=== PATIENT | male | born 1955 | race Caucasian/White ===

== ENCOUNTER → 2017-06-25 | Outpatient (CLI) | payer BC ==
[~2017-06-25] MED LIST: BIOF500T PO; ENOX40IN SQ; ESTER C PO; EZET10TA47 PO; FINA5TAB PO; LISI-725 PO; MULT-506 PO; OXYC-292 PO; OXYC-643 PO; PRAV20TA PO; TAMS0.4C38 PO; WARF6TAB PO
--- NOTE | 2017-06-25 12:38 | DIAGNOSTIC IMAGING REPORT ---
BONE SCAN 3 PHASE LIMITED CLINICAL HISTORY: RT KNEE PAIN/SWELLING R/O INFECT. VS TKR LOOSENING pain TECHNIQUE: 3 phase study following administration of 25.7 mCi technetium 99m MDP. COMPARISON STUDY: None FINDINGS: Patient is status post total right knee replacement. No additional vascular flow images show hyperemia to the general region of the right knee. This is seen in the anterior and posterior views. Delayed static images as well as blood pool images demonstrate increased activity at the osseous interface with the metallic prosthetic. No significant abnormality of the left knee. IMPRESSION: 1. Hyperemia and increased delayed activity at the interface of the patient's total right knee prosthetic and underlying bone. 2. Given the hyperemia, joint infection must be considered. 3. This may also represent loosening, although the increased vascular flow remains concerning for an infectious/inflammatory etiology The above report was generated using voice recognition software. It may contain grammatical, syntax or spelling errors. Electronically signed by: Harry Terrell M.D. 06/25/2017 12:37 PM Dictated Date/Time: 06/25/2017 12:33 PM
== END | disposition home or self-care (01) ==
LOC: C.NUCL 08:40
PROVIDERS: ATTEND Orthopaedic Surgery
DX: T84.092A Other mechanical complication of internal right knee prosthesis, initial encounter (principal); Y83.1 Surgical operation with implant of artificial internal device as the cause of abnormal reaction of the patient, or of later complication, without mention of misadventure at the time of the procedure; Y79.2 Prosthetic and other implants, materials and accessory orthopedic devices associated with adverse incidents

== ENCOUNTER 2017-06-29 09:30 | Inpatient (IN) | payer BC ==
--- NOTE | 2017-06-28 13:57 | HISTORY & PHYSICAL EXAMINATION ---
DATE OF ADMISSION: 06/29/2017 HISTORY OF PRESENT ILLNESS: The patient presents as a 62-year-old white male being seen and evaluated with aseptic loosening of his right femoral component. He had his knee replacement done in 2011. Postoperatively, he was doing remarkably well, had no complaints of pain and over the last 6 months to 9 months began having swelling and pain of his knee. Preoperative workup included sed rate, CBC, and C-reactive protein, which were all within normal limits as well as Synovasure aspiration, no growth, negative for any type of infection, negative for alpha defensins. His bone scan is consistent with that of an increased uptake involving the femoral component and tibial component is otherwise appears to be unaffected. He has failed attempts at conservative management, activity modification and presents for revision total knee arthroplasty versus revision femur component. PAST MEDICAL HISTORY: Significant for hypertension and hypercholesterolemia. He denies diabetes or thyroid disease. FAMILY HISTORY: Otherwise, unremarkable and noncontributory. SOCIAL HISTORY: The patient denies history of alcohol, smoking or recreational drug use. ALLERGIES: None. MEDICATIONS: Include Pravachol 40 mg p.o. daily and Lyrica 50 mg p.o. daily. REVIEW OF SYSTEMS: Otherwise, as unremarkable. See history of present illness for pertinent positives. PHYSICAL EXAMINATION: GENERAL: Reveals a very pleasant 62-year-old white male with complaints of ongoing pain attributed to his right knee with swelling with aseptic loosening of his distal component. He presents for revision of femoral component, possible total knee revision pending findings at time of surgery as well as intraoperative frozen sections. HEENT: Otherwise unremarkable, atraumatic, normocephalic. HEART: Regular at 72 beats per minute. No murmurs are noted. LUNGS: Clear. No rales, rhonchi, or wheezes noted. ABDOMEN: Soft, nontender, nondistended. Bowel sounds are present in all 4 quadrants. RECTAL: No rectal examination was performed. MUSCULOSKELETAL: Consistent with that of a painful right total knee arthroplasty. PLAN: For removal of aseptic loosening femoral component, intraoperative gram stain synovectomy and revision total knee arthroplasty pending findings at time of surgery. Postoperative pain management, DVT prophylaxis, antibiotics as noted above.
[2017-06-28 16:02] VITALS: Ht 177.8 cm; Wt 84.1 kg
[~2017-06-29] VITALS: Ht 177.8 cm; Wt 84.1 kg
[2017-06-29] VITALS (7 sets, daily range): BP systolic 117–153; BP diastolic 55–94; PULSE 59–76; TEMP 36.3–36.9; O2SAT 94–97
--- NOTE | 2017-06-29 09:22 | History & Physical Bridge Note ---
H&P Re-Evaluation Bridge Note: I have examined the patient, reviewed the History & Physical and in the interval since the performance of the History & Physical I have noted the following changes of clinical significance: No changes noted
[~2017-06-29 09:30] MED LIST changes: +ACETAMINOPHEN 500 MG TAB PO SCH; +ATROPINE SULFATE 0.1 MG/ML 5ML SYR IV PRN; +BUPIVACAINE 0.5 % 5 MG/1 ML PF 10ML VIAL ONE; +CEFAZOLIN 1000MG IV PUSH 5 ML IV SCH; -ENOX40IN SQ; -ESTER C PO; -EZET10TA47 PO; +EpHEDrine SULFATE INJ 50 MG/ML AMP IV PRN; +HYDROmorphone INJ 2 MG/ML SYR/VIAL IV PRN; +LACTATED RINGER'S 1000ML 1,000 ML IV SCH; +LACTATED RINGER'S 1000ML 500 ML IV ONE; +ONDANSETRON INJ 2 MG/ML 2 ML VIAL IV PRN; -OXYC-292 PO; -OXYC-643 PO; +PHENYLEPHRINE 100MCG/ML 5ML SYR IV PRN; +ROPIVACAINE 0.5% 5 MG/ML 30 ML VIAL ONE
[2017-06-29] MEDS ORDERED: CEFAZOLIN 2000MG IV PUSH 10 ML IV SCH (10:01)
[2017-06-29] MEDS ORDERED: MIDAZOLAM HCL 1 MG/ML 2ML VIAL ONE (10:12)
[2017-06-29] MEDS ORDERED: FENTANYL CITRATE INJ 50 MCG/1 ML 2 ML VIAL ONE (10:12)
[2017-06-29 10:25] LABS: INR 1.1 (0.9-1.1); PARTIAL THROMBOPLASTIN RATIO 1.1
[2017-06-29] MEDS ORDERED: FAMOTIDINE 20 MG TAB PO SCH (10:30)
[2017-06-29] MEDS ORDERED: METOCLOPRAMIDE HCL 10 MG TAB PO SCH (10:30)
[2017-06-29] MEDS ORDERED: ACETAMINOPHEN 500 MG TAB PO SCH (10:30)
[2017-06-29] MEDS ORDERED: CeleBREX 200 MG CAP PO SCH (10:30)
[2017-06-29] MEDS ORDERED: GABAPENTIN 300 MG CAP PO SCH (10:30)
[2017-06-29] MEDS ORDERED: DEXAMETHASONE 4 MG TAB PO SCH (10:30)
[2017-06-29] MEDS ORDERED: POVIDONE-IODINE OP SOLN 30 ML BTL ONE (11:06)
[2017-06-29] MEDS ORDERED: BACITRACIN 50000 UNIT VIAL ONE (11:06)
[2017-06-29] MEDS ORDERED: ROPIVACAINE 5MG/ML 30 ML 150 MG, BUPIVACAINE 0.5% MPF INJ 30 ML, EpINEphrine HCL INJ 0.... INFIL SCH ×8 (11:45)
--- NOTE | 2017-06-29 13:45 | [facility] Operative Report ---
Operative Report Operative Date Jun 29, 2017. Pre-Operative Diagnosis Right Total Knee, Aseptic Loosening Right Femoral Component Post-Operative Diagnosis Right Total Knee, Aseptic Loosening Right Femoral Component Procedure(s) Performed Right Total Knee Revision of Femoral Component and Poly Exchange utilizing size femur 66 Moler offset 15 mm stem by 160 mm set at 01/15/2015 millimeter constrained Ora Surgeon [address]. Henderson Publications Designer Surgeon(s) MARCI Torrez Estimated Blood Loss 10 ml Findings Aseptic loosening femoral component right total knee arthroplasty interoperative frozen sections no acute inflammation no white cells per high- power field interoperative stat Gram stain few white cells no organisms Specimens Culture--Right Knee Joint Fluid--for STAT gram stain, routine culture and sensitivity, aerobes and anaerobes--sent to lab at 1212 Frozen Section #1--Right Femur Implant Interface--wbcs per high powered field--sent to pathology at 1247 Complication(s) None Disposition Recovery Room / PACU Indications Patient presents with long-standing pain and swelling about his right knee said previous total knee arthroplasty 4 years prior had a synovial sure workup which was negative for alpha defense and is negative for cultures no growth center synovasure femoral component was loosened on the medial side and was removed utilizing laterally was negative preoperative sedimentation rate and C-reactive protein were all within normal limits intraoperative Gram stain was negative intraoperative frozen section acute inflammation noted Description of Procedure After proper prepping draping the right lower extremity incision was made over the region of the previous extensor midline incision and medial parapatellar incision made the patella subluxed lateralward. Femur were evaluated and there is loosening of the lateral compartment component femur medial side was released that utilizing the Ultra-Drive the femoral component been removed sensitives tissue at the implant bone interface was socially sent for frozen section intraoperative Gram stain were sent for stat evaluation which were reported as no organisms and few white cells informational frozen section no white cells per high power field informed thorough irrigation debridement lavage wound after removal of femoral component and the femur was sized to size 6 with a 6 mm offset 15 mm stem 160 7630 Ora 15 mm with a constrained poly- was placed socially the wound was irrigated with copious amounts of sterile saline solution the final component was [place] was prepared via femoral component was also cemented of the poly-was placed stability in both extension mid flexion and flexion was all excellent full range of motion 0 150 of flexion was noted patient WELL socially wound was irrigated with sterile saline solution medial parapatellar incision was closed with #2 FiberWire and #5 FiberWire as well as #1 Vicryl subcutaneous sutures of 2-0 Vicryl scheduled skin clips sterile compressive dressing was placed patient states recovery in stable condition. Report dictated by Santiago Aguirreel Maegan please note Harry COVARRUBIAS was necessary for prepping draping retraction closure defect is subcutaneous and skin was necessary for the case I attest to the content of the Intraoperative Record and any orders documented therein. Any exceptions are noted below.
[2017-06-29] MEDS ORDERED: PROPOFOL IV EMULSION 10 MG/ML 20 ML VIAL IV ONE (13:51)
[2017-06-29] MEDS ORDERED: GLYCOPYRROLATE INJ 0.2 MG/ML VIAL ONE (13:51)
[2017-06-29] MEDS ORDERED: MoRPHine SULFATE 2 MG/ML CARP IV PRN ×2 (14:30→15:15)
[2017-06-29] MEDS ORDERED: ALUMINUM/MAGNESIUM/SIMETH (MAALOX MAX) 30 ML UDC PO PRN (14:30)
[2017-06-29] MEDS ORDERED: KETOROLAC TROMETHAMINE 30 MG/ML VIAL IV. PRN (14:30)
[2017-06-29] MEDS ORDERED: SOD PHOSPHATE/SOD BIPHOSPHATE ENEMA 132 ML BTL PR PRN (14:30)
[2017-06-29] MEDS ORDERED: BISACODYL 10 MG SUPP PR PRN (14:30)
[2017-06-29] MEDS ORDERED: ONDANSETRON INJ 2 MG/ML 2 ML VIAL IV PRN (14:30)
[2017-06-29] MEDS ORDERED: TRAMADOL HCL 50 MG TAB PO PRN (14:30)
[2017-06-29] MEDS ORDERED: MAGNESIUM HYDROXIDE SUSP 30 ML UDC PO PRN (14:30)
--- NOTE | 2017-06-29 14:38 | DIAGNOSTIC IMAGING REPORT ---
TWO VIEWS RIGHT KNEE CLINICAL HISTORY: Postoperative examination. FINDINGS: AP and crosstable lateral portable views of the right knee are obtained. A right knee arthroplasty is in near anatomic alignment. A long femoral stem is observed. There has been undersurface remodeling of the patella. No acute fracture is seen. There are expected postoperative changes around the knee including a surgical drain, soft tissue edema, and subcutaneous gas. IMPRESSION: Expected postoperative changes status post right knee arthroplasty. No acute fracture is seen. Electronically signed by: Rick Gustafson M.D. 06/29/2017 2:37 PM Dictated Date/Time: 06/29/2017 2:37 PM
[2017-06-29] MEDS ORDERED: MoRPHine SULFATE 4 MG/ML 1 ML CARP\\VIAL IV PRN (15:15)
[2017-06-29] MEDS ORDERED: MoRPHine SULFATE 10 MG/ML CARP/VIAL IV PRN (15:15)
--- NOTE | 2017-06-29 15:51 | Anesthesiology Progress Note ---
Anesthesia Post Op Note Date & Time Jun 29, 2017 at 15:50 Vital Signs Pain Intensity: 0.0 Vital Signs Past 12 Hours Date Time Temp Pulse Resp B/P (MAP) Pulse Ox O2 Delivery O2 Flow Rate FiO2 06/29/17 15:30 36.9 76 18 129/83 (98) 97 Nasal Cannula 2.0 06/29/17 15:30 Nasal Cannula 2.0 06/29/17 15:15 64 15 127/85 95 Nasal Cannula 2 06/29/17 15:00 64 18 125/82 95 Nasal Cannula 2 06/29/17 14:45 37.0 80 21 130/86 95 Nasal Cannula 2 06/29/17 14:35 81 17 112/77 94 Nasal Cannula 2 06/29/17 14:25 73 16 102/66 94 Oxymask 10 06/29/17 14:16 37.3 72 18 95/60 95 Oxymask 10 06/29/17 10:17 36.4 67 18 148/94 96 Room Air Notes Mental Status: alert / awake / arousable, participated in evaluation Pt Amnestic to Procedure: Yes Nausea / Vomiting: adequately controlled Pain: adequately controlled Airway Patency, RR, SpO2: stable & adequate BP & HR: stable & adequate Hydration State: stable & adequate Anesthetic Complications: no major complications apparent
[2017-06-29 17:23] LABS: CREATININE 1.09 mg/dl (0.60-1.40)
[2017-06-29] MEDS: D5W AND 1/2NSS + 20MEQ KCL 1,000 ML IV SCH (17:44)
[2017-06-29] MEDS: ACETAMINOPHEN 500 MG TAB PO SCH (18:07)
[2017-06-29] MEDS: WARFARIN PO SCH ×2 (18:07)
[2017-06-29] MEDS: CEFAZOLIN IV 2,000 MG in SYRINGE 0 ML IV SCH (20:02)
[2017-06-29] MEDS ORDERED: ASPIRIN 81 MG ECTAB PO SCH (21:00)
[2017-06-29] MEDS: TAMSULOSIN HCL 0.4 MG CAP PO SCH (21:11)
[2017-06-29] MEDS: DOCUSATE SODIUM 100 MG CAP PO SCH (21:11)
[2017-06-29] MEDS: SENNA 8.6 MG TAB PO SCH (21:11)
[2017-06-29] MEDS: ZOLPIDEM TARTRATE 5 MG TAB PO PRN (21:53)
[2017-06-30] MEDS: D5W AND 1/2NSS + 20MEQ KCL 1,000 ML IV SCH ×2 (02:14→12:02)
[2017-06-30] MEDS: ACETAMINOPHEN 500 MG TAB PO SCH ×3 (02:14→17:51)
[2017-06-30] MEDS: CEFAZOLIN IV 2,000 MG in SYRINGE 0 ML IV SCH (03:44)
[2017-06-30 03:55] VITALS: BP 126/75; PULSE 63; TEMP 36.6; O2SAT 97
[2017-06-30 06:58] LABS: HEMATOCRIT 38.2 % (42-52); MEAN CELL VOLUME 85.8 fL (80-100); MEAN CORPUSCULAR HEMOGLOBIN 28.1 pg (25-34); MEAN CORPUSCULAR HGB CONC 32.7 g/dl (32-36); MEAN PLATELET VOLUME 10.1 fL (7.4-10.4); PLATELET COUNT 157 K/uL (130-400); RED BLOOD COUNT 4.45 M/uL (4.7-6.1); WHITE BLOOD COUNT 13.18 K/uL (4.8-10.8)
[2017-06-30 07:01] LABS: INR 1.1 (0.9-1.1); PROTHROMBIN TIME (PATIENT) 11.5 SECONDS (9.0-12.0)
--- NOTE | 2017-06-30 07:02 | Orthopedic Progress Note ---
Orthopedic Progress Note Date of Service Jun 30, 2017. Subjective Post OP Day: 1 Reports: feeling well, pain controlled w PO medications, Denies: complaints, chest pain, SOB, nausea / vomiting, light headedness, calf pain Objective calves soft nontender, N/V intact, capillary refill less than 2 sec., dressing C /D/I, A&O x3, toes mobile, hemovac drainage (200cc/8 hours) Date Time Temp Pulse Resp B/P (MAP) Pulse Ox O2 Delivery O2 Flow Rate FiO2 06/30/17 03:55 36.6 63 16 126/75 (92) 97 Room Air 06/29/17 23:25 36.5 61 16 117/55 (75) 94 Room Air 06/29/17 23:20 Room Air 06/29/17 18:24 64 18 144/81 (102) 97 Nasal Cannula 2.0 06/29/17 17:36 36.4 59 16 151/93 (112) 96 Nasal Cannula 2.0 06/29/17 16:36 36.3 64 16 149/89 (109) 97 Nasal Cannula 2.0 06/29/17 16:07 36.5 68 16 153/94 (113) 96 Nasal Cannula 2.0 06/29/17 15:30 36.9 76 18 129/83 (98) 97 Nasal Cannula 2.0 06/29/17 15:30 97 Nasal Cannula 2.0 06/29/17 15:30 Nasal Cannula 2.0 06/29/17 15:15 64 15 127/85 95 Nasal Cannula 2 06/29/17 15:00 64 18 125/82 95 Nasal Cannula 2 06/29/17 14:45 37.0 80 21 130/86 95 Nasal Cannula 2 06/29/17 14:35 81 17 112/77 94 Nasal Cannula 2 06/29/17 14:25 73 16 102/66 94 Oxymask 10 06/29/17 14:16 37.3 72 18 95/60 95 Oxymask 10 06/29/17 10:17 36.4 67 18 148/94 96 Room Air Laboratory Results 24 Hours: Test 06/29/17 09:56 06/30/17 06:14 Prothromb Time International Ratio 1.1 Prothrombin Time 12.0 SECONDS Assessment & Plan Assessment: POD #1 s/p revision femoral component and poly upsize right TKA -pt/ot -dvt proph with meron/scd/coumadin -plan for d/c home with OPPT, will recheck after PT today for poss d/c today Discharge Planning Discharge Planning: home with oppt DVT Prophylaxis: TEDs, SCDs, Coumadin Therapy: Physical Therapy
[2017-06-30 07:24] LABS: BUN/CREATININE RATIO 18.9 (10-20); CALCIUM 7.9 mg/dl (8.5-10.1); CREATININE 0.91 mg/dl (0.60-1.40); POTASSIUM 4.3 mmol/L (3.5-5.1)
--- NOTE | 2017-06-30 07:26 | Discharge Instructions ---
Discharge Instructions Date of Service Jun 30, 2017. Admission Reason for Admission: Right Knee Mechanical Loosening Of Other Internal Discharge Discharge Diagnosis / Problem: revision femoral component and poly s/p Right TKA Discharge Goals Goal(s): Decrease discomfort, Improve function, Increase independence Activity Recommendations Activity Limitations: as noted below Weightbearing Status: Right weightbearing (as tolerated) . Instructions / Follow-Up Instructions / Follow-Up ACTIVITY RECOMMENDATIONS: SELF CARE INSTRUCTIONS AFTER TOTAL KNEE REPLACEMENT A. You may need to continue a physical therapy program after discharge from the hospital. There are several options available to you. Your doctor will assist you in selecting the best one for you. 1. An out-patient facility 2 to 3 times a week for therapy or home therapy. 2. Continue working on all exercises taught to you in the hospital. Your goals should be to increase bending of your knee to 90 degrees and beyond and to fully straighten your knee. B. You may progress at your own pace from walking with a walker or crutches to a cane; then to no assistive devices. C. Make walking a part of your daily routine. Be up as much as comfortable with rest periods throughout the day. Rest with leg elevation is very important. Use the ice wrap frequently for the first 3-4 weeks. D. There are no restrictions on activities. You may ride in a car, shop, participate in hospice rn and all social activities. E. Wear the long elastic stockings (MICHELE hose) 20 hours a day for 2 weeks after surgery. They can be removed several times a day for laundering and for a bath. F. You may shower, no tub baths until cleared by your doctor. SPECIAL CARE INSTRUCTIONS: VERY IMPORTANT TO READ AND REVIEW A. There are a few signs you need to watch for after you are home. Call [facility] if you notice any of the followin. Increased severe knee pain. Some pain is expected especially when you exercise. 2. Increased swelling in your leg or knee; pain or swelling of the calf muscle in either lower leg. 3. Any fluid drainage from the incision. 4. Shortness of breath or chest pain. B. Please call [facility] at if you have any concerns or questions about your operation or recovery. The doctor or his nurse will return your call promptly. C. You must take antibiotics before dental work, bladder, bowel or other surgery. Your doctor will provide you with a permanent care to carry describing this precaution. IMPORTANT: * REMEMBER TO CONTINUE YOUR HOME DOSE OF COUMADIN AND HAVE YOUR PT/INR CHECKED TWICE/WEEK FOR THE FIRST 2 WEEKS AFTER SURGERY. * HIGH RISK PATIENTS MAY BE PRESCRIBED A STRONGER BLOOD THINNER. THIS WILL BE PROVIDED AT DISCHARGE. * CALL IF INCREASED PAIN, REDNESS, DRAINAGE OR FEVER GREATER THAT 101. * WEAR MICHELE HOSE 20 HOURS PER DAY FOR 2 WEEKS. * DERMABOND Prineo- This is a mesh tape dressing that is covered with glue. It should remain in place until the incision is properly healed, usually 10-14 days. This dressing is designed to naturally slough off. You may trim the excess mesh tape as it peels off. Incision may be briefly wet in a shower. Dry immediately by blotting with a clean, dry towel. Do not bath or swim until instructed by your doctor. Do not scratch, rub, or pick at the dressing. Do not apply any topical ointments or lotions until dressing is completely removed and/or instructed by your doctor. There may be a small piece of suture material at one end of your incision. Do not pull or trim this. If it is bothersome or catching on clothing, you may cover it with a band-aid. FOLLOW UP VISIT: If appointment is not already scheduled: Please call [facility] to make a follow-up appointment for 2 weeks after your surgery at . Current Hospital Diet Patient's current hospital diet: Regular Diet Discharge Diet Recommended Diet: Regular Diet Procedures Procedures Performed: Right Total Knee Revision of Femoral Component and Poly Exchange utilizing size femur 66 Moler offset 15 mm stem by 160 mm set at 01/15/2015 millimeter constrained Ora Pending Studies Studies pending at discharge: no Medical Emergencies . Who to Call and When: Medical Emergencies: If at any time you feel your situation is an emergency, please call 911 immediately. . Non-Emergent Contact Non-Emergency issues call your: Primary Care Provider, Surgeon . "Provider Documentation" section prepared by Harry Matamoros. . VTE Core Measure Inpt VTE Proph given/why not?: Warfarin (Coumadin) (RESUME HOME DOSE), Rusty Joseph, SCD's [place] Drug Monitoring Program Search Results: patient reviewed within database, no issues identified
[2017-06-30 07:51] VITALS: BP 122/78; PULSE 57; TEMP 36.9; O2SAT 95
[2017-06-30 07:55] VITALS: O2SAT 95
[2017-06-30] MEDS: PRAVASTATIN SOD 40 MG TAB PO SCH (08:31)
[2017-06-30] MEDS: DOCUSATE SODIUM 100 MG CAP PO SCH ×2 (08:31→21:00)
[2017-06-30] MEDS: FINASTERIDE 5 MG TAB PO SCH (08:31)
[2017-06-30] MEDS: MULTIVITAMIN TAB PO SCH (08:32)
[2017-06-30] MEDS: PANTOprazole SOD 40 MG TAB PO SCH (08:32)
[2017-06-30] MEDS: LISINOPRIL 20 MG TAB PO SCH (08:32)
[2017-06-30] MEDS ORDERED: WARFARIN SOD 6 MG TAB PO SCH (09:00)
[2017-06-30 11:28] VITALS: BP 130/60; PULSE 63; TEMP 36.7; O2SAT 95
--- NOTE | 2017-06-30 13:28 | Anesthesiology Progress Note ---
Anesthesia Post Op Note Date & Time Jun 30, 2017 at 13:27 Vital Signs Pain Intensity: 0.0 Vital Signs Past 12 Hours Date Time Temp Pulse Resp B/P (MAP) Pulse Ox O2 Delivery O2 Flow Rate FiO2 06/30/17 11:28 36.7 63 18 130/60 (83) 95 Room Air 06/30/17 07:55 95 Room Air 06/30/17 07:51 36.9 57 22 122/78 (93) 95 Room Air 06/30/17 07:25 Room Air 06/30/17 03:55 36.6 63 16 126/75 (92) 97 Room Air Notes Mental Status: alert / awake / arousable, participated in evaluation Pt Amnestic to Procedure: Yes Nausea / Vomiting: adequately controlled Pain: adequately controlled Airway Patency, RR, SpO2: stable & adequate BP & HR: stable & adequate Hydration State: stable & adequate Neuraxial Anesthesia: sensory block resolved Anesthetic Complications: no major complications apparent
[2017-06-30 14:55] VITALS: BP 136/75; PULSE 67; TEMP 36.6; O2SAT 92
[2017-06-30] MEDS: WARFARIN PO SCH ×2 (16:13)
[2017-06-30] MEDS: SENNA 8.6 MG TAB PO SCH (21:00)
[2017-06-30] MEDS: TAMSULOSIN HCL 0.4 MG CAP PO SCH (21:39)
[2017-06-30] MEDS: ZOLPIDEM TARTRATE 5 MG TAB PO PRN (21:39)
[2017-06-30] MEDS: CeleBREX 200 MG CAP PO SCH (21:39)
[2017-07-01 00:06] VITALS: BP 122/76; PULSE 64; TEMP 36.9; O2SAT 96
[2017-07-01] MEDS: ACETAMINOPHEN 500 MG TAB PO SCH ×2 (01:39→09:56)
[2017-07-01 06:26] LABS: INR 1.4 (0.9-1.1); PROTHROMBIN TIME (PATIENT) 14.1 SECONDS (9.0-12.0)
[2017-07-01 07:08] VITALS: BP 152/83; PULSE 64; TEMP 36.5; O2SAT 96
--- NOTE | 2017-07-01 08:02 | Orthopedic Progress Note ---
Orthopedic Progress Note Date of Service Jul 01, 2017. Subjective Post OP Day: 2 Reports: feeling well, Denies: complaints Objective calves soft nontender, N/V intact, incision C/D/I, A&O x3, toes mobile Date Time Temp Pulse Resp B/P (MAP) Pulse Ox O2 Delivery O2 Flow Rate FiO2 07/01/17 07:08 36.5 64 18 152/83 (106) 96 Room Air 07/01/17 07:05 Room Air 07/01/17 00:06 36.9 64 14 122/76 (91) 96 Room Air 06/30/17 23:55 Room Air 06/30/17 15:30 Room Air 06/30/17 14:55 36.6 67 19 136/75 (95) 92 Room Air 06/30/17 11:28 36.7 63 18 130/60 (83) 95 Room Air Laboratory Results 24 Hours: Test 07/01/17 05:34 Prothromb Time International Ratio 1.4 Prothrombin Time 14.1 SECONDS Assessment & Plan Assessment: POD #2 s/p revision femoral component and poly upsize right TKA -pt/ot -dvt proph with meron/scd/coumadin -plan for d/c home with OPPT today Discharge Planning Discharge Planning: home with oppt DVT Prophylaxis: TEDs, SCDs, Coumadin Therapy: Physical Therapy
[2017-07-01] MEDS ORDERED: SENN-61 PO (08:08)
[2017-07-01] MEDS ORDERED: RXC5 PO (08:08)
[2017-07-01] MEDS ORDERED: CLB200 PO (08:08)
[2017-07-01] MEDS ORDERED: ACET-24 PO (08:08)
[2017-07-01] MEDS: LISINOPRIL 20 MG TAB PO SCH (08:21)
[2017-07-01] MEDS: FINASTERIDE 5 MG TAB PO SCH (08:21)
[2017-07-01] MEDS: MULTIVITAMIN TAB PO SCH (08:21)
[2017-07-01] MEDS: PRAVASTATIN SOD 40 MG TAB PO SCH (08:21)
[2017-07-01] MEDS: DOCUSATE SODIUM 100 MG CAP PO SCH (08:21)
[2017-07-01] MEDS: PANTOprazole SOD 40 MG TAB PO SCH (08:21)
[2017-07-01] MEDS: OXYCODONE HCL IR 5 MG TAB (IMMEDIATE RELEASE) PO PRN ×2 (08:26→13:08)
[2017-07-01 09:12] VITALS: BP 152/83; PULSE 64; TEMP 36.5; O2SAT 96
[2017-07-01] MEDS: CeleBREX 200 MG CAP PO SCH (09:29)
--- NOTE | 2017-07-01 18:25 | Discharge Summary ---
Orthopedic Discharge Summary Admission Date/Reason Jun 29, 2017 at 10:30 Right Knee Mechanical Loosening Of Other Internal. Discharge Date/Disposition Jun 30, 2017 Home Diagnosis Principal Diagnosis: aseptic loosening right total knee arthroplasty Procedure(s) Performed Right Total Knee Revision of Femoral Component and Poly Exchange utilizing size femur and constrained Ora Consultations NONE Medication Reconciliation New Medications: Acetaminophen (Sb Non-Aspirin Extra Stre) 500 Mg Tab 1000 MG PO Q8H for 21 Days, #126 TAB Celecoxib (Celebrex) 200 Mg Cap 200 MG PO BID, #60 CAP Oxycodone HCl (Oxycodone HCl) 5 Mg Tab 5-10 MG PO Q4H PRN for Pain, #60 TAB Senna (Senokot) 8.6 Mg Tab 17.2 MG PO HS, #30 TAB Continued Medications: Bioflavonoid Products (Prisca-C) 1 Tab Tab 1 TAB PO QAM Finasteride (Proscar) 5 Mg Tab 5 MG PO QAM, TAB Lisinopril (Zestril) 20 Mg Tab 20 MG PO QAM, TAB Multivitamin (Multivitamin) Tab 1 TAB PO QAM, TAB Pravastatin (Pravachol ) 20 Mg Tab 40 MG PO QAM, TAB Tamsulosin Hcl (Flomax) 0.4 Mg Cap 0.4 MG PO HS, CAP Warfarin Sodium (Coumadin) 6 Mg Tab 6.5 MG PO DAILY, TAB PER PT WAS TOLD TO STOP TAKING 06/24/17 Admission Physical Exam As per Admitting History & Physical. Hospital Course Patient was a same day admission after undergoing a successful revision TKA. he tolerated the procedure well. Post-operatively, his activity was progressed and well tolerated. Please refer to daily progress notes and PT notes for complete details. After exam on 07/01/17, patient felt to be stable for discharge home with OPPT. Patient will f/u in the office in 2 weeks for further evaluation including x-rays and incision check, sooner if having any issues or concerns. Below are pertinent labs/studies during their hospital stay: Last Vital Signs Documentation Date Time Temp Pulse Resp B/P (MAP) Pulse Ox O2 Delivery O2 Flow Rate FiO2 07/01/17 09:12 36.5 64 18 96 Room Air 07/01/17 07:08 152/83 (106) 06/29/17 18:24 2.0 Last Resulted CBC 06/30/17 06:14 Last Resulted BMP 06/30/17 06:14 Discharge Instructions ACTIVITY RECOMMENDATIONS: SELF CARE INSTRUCTIONS AFTER TOTAL KNEE REPLACEMENT A. You may need to continue a physical therapy program after discharge from the hospital. There are several options available to you. Your doctor will assist you in selecting the best one for you. 1. An out-patient facility 2 to 3 times a week for therapy or home therapy. 2. Continue working on all exercises taught to you in the hospital. Your goals should be to increase bending of your knee to 90 degrees and beyond and to fully straighten your knee. B. You may progress at your own pace from walking with a walker or crutches to a cane; then to no assistive devices. C. Make walking a part of your daily routine. Be up as much as comfortable with rest periods throughout the day. Rest with leg elevation is very important. Use the ice wrap frequently for the first 3-4 weeks. D. There are no restrictions on activities. You may ride in a car, shop, participate in dampproofer and all social activities. E. Wear the long elastic stockings (MICHELE hose) 20 hours a day for 2 weeks after surgery. They can be removed several times a day for laundering and for a bath. F. You may shower, no tub baths until cleared by your doctor. SPECIAL CARE INSTRUCTIONS: VERY IMPORTANT TO READ AND REVIEW A. There are a few signs you need to watch for after you are home. Call [facility] if you notice any of the followin. Increased severe knee pain. Some pain is expected especially when you exercise. 2. Increased swelling in your leg or knee; pain or swelling of the calf muscle in either lower leg. 3. Any fluid drainage from the incision. 4. Shortness of breath or chest pain. B. Please call [facility] at if you have any concerns or questions about your operation or recovery. The doctor or his nurse will return your call promptly. C. You must take antibiotics before dental work, bladder, bowel or other surgery. Your doctor will provide you with a permanent care to carry describing this precaution. IMPORTANT: * REMEMBER TO TAKE ASPIRIN, 81 MG, TWICE DAILY FOR 4 WEEKS UNLESS OTHERWISE DIRECTED. THIS IS YOUR BLOOD THINNER. * HIGH RISK PATIENTS MAY BE PRESCRIBED A STRONGER BLOOD THINNER. THIS WILL BE PROVIDED AT DISCHARGE. * CALL IF INCREASED PAIN, REDNESS, DRAINAGE OR FEVER GREATER THAT 101. * WEAR MICHELE HOSE 20 HOURS PER DAY FOR 2 WEEKS. * DERMABOND Prineo- This is a mesh tape dressing that is covered with glue. It should remain in place until the incision is properly healed, usually 10-14 days. This dressing is designed to naturally slough off. You may trim the excess mesh tape as it peels off. Incision may be briefly wet in a shower. Dry immediately by blotting with a clean, dry towel. Do not bath or swim until instructed by your doctor. Do not scratch, rub, or pick at the dressing. Do not apply any topical ointments or lotions until dressing is completely removed and/or instructed by your doctor. There may be a small piece of suture material at one end of your incision. Do not pull or trim this. If it is bothersome or catching on clothing, you may cover it with a band-aid. FOLLOW UP VISIT: If appointment is not already scheduled: Please call [facility] to make a follow-up appointment for 2 weeks after your surgery at .
== END 2017-07-01 13:59 | disposition home or self-care (01) | DRG 468 ==
LOC: C.ACU 09:30 → C.3E 10:30 → ENRESERV 15:18
PROVIDERS: ADMIT Orthopaedic Surgery; ATTEND Orthopaedic Surgery
PROC: 0SRT0J9 Replacement of Right Knee Joint, Femoral Surface with Synthetic Substitute, Cemented, Open Approach (ICD-10-PCS; principal; 2017-06-29 12:15)
PROC: 0SPT0JZ Removal of Synthetic Substitute from Right Knee Joint, Femoral Surface, Open Approach (ICD-10-PCS; principal; 2017-06-29 12:15)
DX: T84.032A Mechanical loosening of internal right knee prosthetic joint, initial encounter (principal); Y83.1 Surgical operation with implant of artificial internal device as the cause of abnormal reaction of the patient, or of later complication, without mention of misadventure at the time of the procedure; I10 Essential (primary) hypertension; E78.00 Pure hypercholesterolemia, unspecified; Z79.899 Other long term (current) drug therapy

== ENCOUNTER 2020-09-10 10:19 | Inpatient (IN) ==
--- NOTE | 2020-08-27 14:50 | Anesthesiology Consultation ---
Date of Service August 27, 2020 Assessment & Plan (1) Encounter for pre-operative examination: Chart Review Chart Review: Pending: Refer to Additional Notes / Consult section (08/28 stress test, cardio clearance/most recent cardio note and preop Covid testing ) and Patient NOT seen in Pre Admission Testing -Awaiting most recent cardio note and stress test scheduled 08/28/20. - Check coags AM DOS Per nursing assessment 08/15/2020, pt denies any recent travel. No known Covid positive contacts or Covid related symptoms. No known Covid positive contacts or Covid related symptoms. Pt denies any known Covid infection in the past 90 days. Pt scheduled for preop Covid testing 09/04/20= will await results. Right knee revision 06/29/17= Done under [facility] at L3-4. No anesthesia issues noted per anesthesia record. History Surgery Operation Date: 09/10/20 11:10 Proposed Procedures p Right Reverse Total Shoulder Arthroplasty - Don Win, Height/Weight Height: 5 ft 10 in Weight: 83.007 kg Allergies Allergy/AdvReac Type Severity Reaction Status Date / Time No Known Allergies Allergy Verified 08/15/20 12:21 Medications Home Medications Medication Instructions Recorded Confirmed Last Taken Lactobacillus rhamnosus GG 10 1 cap PO QAM 05/28/20 08/15/20 Unknown billion cell capsule lisinopril 20 mg tablet 20 mg PO QAM 05/28/20 08/15/20 Unknown multivitamin-ferrous 1 tab PO QAM 05/28/20 08/15/20 Unknown fumarate-folic acid 18 mg-400 mcg tablet warfarin 6 mg tablet 6 mg PO QAM 05/28/20 08/15/20 Unknown zolpidem 10 mg tablet 10 mg PO HS 05/28/20 08/15/20 Unknown gabapentin 600 mg PO BID 08/15/20 08/15/20 Unknown pravastatin 20 mg PO QAM 08/15/20 08/15/20 Unknown pravastatin 40 mg PO QAM 08/15/20 08/15/20 Unknown tamsulosin 0.4 mg PO BID 08/15/20 08/15/20 Unknown Past Medical History Medical History (Updated 08/27/20 @ 14:56 by Migdalia Walker PA-C) BPH (benign prostatic hyperplasia) DVT (deep venous thrombosis) Remote history around 2009- IVC filter placed and then later removed. 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 syndrome S/p stent placed in left leg; on chronic Coumadin Mitral valve disease MVP- s/p MV repair Peripheral neuropathy Rotator cuff arthropathy b/l Past Family History Family History Other No family history of adverse response to anesthesia Past Surgical History Surgical History H/O eye surgery lasik and cataract H/O mitral valve repair History of cardiac cath x2 2009 [facility] NO STENTS History of right knee surgery ligament repair History of total right knee replacement x2 Hx of cholecystectomy S/P hernia surgery x2 Social History Smoking Status: Never smoker Hx Alcohol Use: Yes Alcohol type: beer alcohol intake frequency: a few times a month substance use type: does not use Testing Laboratory Results 08/14/20= WBC: 6.6 H/H: 14.6/45.4 PLATELETS: 169 SODIUM: 141 POTASSIUM: 4.2 CHLORIDE: 105 CO2: 28 BUN: 34.0 CREATININE: 1.40 GLUCOSE: 91 PT: 19.2 PTT: 37.3 INR: 1.60 Electrocardiogram Date: 08/14/20 Sinus rhythm with occasional ventricular premature complexes at [address]-T wave abnormality. Chest X-Ray Date: 08/14/20 Findings: + NAD Status post cardiac surgery. Cardiac Catheterization Date: 06/07/12 LM = angiographically normal. LAD = mild atherosclerosis. Left circumflex = mild atherosclerosis. RCA = mild atherosclerosis. EF =60%. Left ventriculography reveals normal wall motion. Conclusion: Nonobstructive coronary atherosclerosis. Normal resting hemodynamics. Normal LV function.
--- NOTE | 2020-09-09 16:52 | History & Physical Report ---
Date of Service September 09, 2020 Assessment & Plan (1) Rotator cuff arthropathy of right shoulder: We will proceed with a right reverse shoulder arthroplasty. Postoperatively he will be placed in a sling and kept overnight in the hospital for postoperative medical management. He plans to go to outpatient physical therapy in [place] upon discharge. History of Present Illness Chief Complaint: Rotator cuff arthropathy of the right shoulder. 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 He had a work-related injury a couple of months ago where he injured his right shoulder. He has been having a difficult time doing any forward elevation. He does have a history of a rotator cuff repair by Dr. Henderson on the right shoulder about 7 to 10 years ago. He was doing well, not having any pain until the work-related incident. Now he notices weakness in his shoulder and pain and weakness reaching away from his body. He has an MRI of his shoulder which showed a massive rotator cuff tear including the supraspinatus and subscapularis. We discussed different options including superior capsular reconstruction versus reverse shoulder arthroplasty. Given the large subscapularis tear and his desire to return to work as soon as possible, we elected to proceed with a reverse shoulder arthroplasty of the right shoulder. . Allergies Allergy/AdvReac Type Severity Reaction Status Date / Time No Known Allergies Allergy Verified 08/15/20 12:21 Home Medications Medication Instructions Recorded Confirmed Type Lactobacillus rhamnosus GG 10 1 cap PO QAM 05/28/20 08/15/20 History billion cell capsule lisinopril 20 mg tablet 20 mg PO QAM 05/28/20 08/15/20 History multivitamin-ferrous 1 tab PO QAM 05/28/20 08/15/20 History fumarate-folic acid 18 mg-400 mcg tablet warfarin 6 mg tablet 6 mg PO QAM 05/28/20 08/15/20 History zolpidem 10 mg tablet 10 mg PO HS 05/28/20 08/15/20 History gabapentin 600 mg PO BID 08/15/20 08/15/20 History pravastatin 20 mg PO QAM 08/15/20 08/15/20 History pravastatin 40 mg PO QAM 08/15/20 08/15/20 History tamsulosin 0.4 mg PO BID 08/15/20 08/15/20 History Past Med/Surg History Medical History BPH (benign prostatic hyperplasia) DVT (deep venous thrombosis) Remote history around 2009- IVC filter placed and then later removed. 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 syndrome S/p stent placed in left leg; on chronic Coumadin Mitral valve disease MVP- s/p MV repair Peripheral neuropathy Rotator cuff arthropathy b/l Surgical History H/O eye surgery lasik and cataract H/O mitral valve repair History of cardiac cath x2 2009 [facility] NO STENTS History of right knee surgery ligament repair History of total right knee replacement x2 Hx of cholecystectomy S/P hernia surgery x2 Family History Other No family history of adverse response to anesthesia Social History Smoking Status: Never smoker Second Hand Exposure: No; Hx Alcohol Use: Yes Alcohol type: beer Preferred Language: Malay Fireworks Maker Required: No Beliefs That Will Affect Care: None Current Living Situation: Spouse Feels Safe at Home: Yes Assistive Devices: Glasses Review of Systems All systems reviewed & are unremarkable except as noted in HPI & below. Physical Exam On physical examination of the right shoulder, he has about 130 degrees forward elevation on 3 degrees of abduction. He is throughout 5 motion with full can testing and positive belly press test.. Constitutional WD/WN, vitals as above Eyes PERRL, conjunctivae normal, anicteric sclerae ENMT external ear and nose normal, oropharynx normal Neck trachea midline, no thyromegaly Respiratory normal respiratory effort Cardiovascular RRR, no murmur, no edema Gastrointestinal (Abdomen) normal bowel sounds, soft, nontender, no hepatosplenomegaly Psychiatric A+Ox3, euthymic affect Results & Data Results & Data Laboratory Results . Diagnostic Findings X-rays of the right shoulder do show a little bit of superior migration of the humeral head of the glenoid. There is no significant arthritis. MRI of the right shoulder does show a large rotator cuff tear involving the supraspinatus and subscapularis.. PG Care Time/CCT Total # of Minutes Spent Total Time Spent with Patient: Total time spent is greater than 50% in coordination of care (as documented) at patient's floor/unit and/or counseling patient: Coding Level of Care Code None Diagnoses Rotator cuff arthropathy of right shoulder M12.811
[~2020-09-10 10:19] MED LIST changes: -ATROPINE SULFATE 0.1 MG/ML 5ML SYR IV PRN; -BIOF500T PO; -CEFAZOLIN 1000MG IV PUSH 5 ML IV SCH; -EpHEDrine SULFATE INJ 50 MG/ML AMP IV PRN; +FAMOTIDINE 20 MG TAB PO SCH; -FINA5TAB PO; +GABAPENTIN 600 MG DOSE PO SCH; -HYDROmorphone INJ 2 MG/ML SYR/VIAL IV PRN; -LACTATED RINGER'S 1000ML 1,000 ML IV SCH; -LACTATED RINGER'S 1000ML 500 ML IV ONE; -LISI-725 PO; +LR 15ML/HR IV SCH; +LR 60ML/HR IV SCH; -MULT-506 PO; -ONDANSETRON INJ 2 MG/ML 2 ML VIAL IV PRN; -PHENYLEPHRINE 100MCG/ML 5ML SYR IV PRN; -PRAV20TA PO; -ROPIVACAINE 0.5% 5 MG/ML 30 ML VIAL ONE; +ROPIVACAINE 0.5% HCL/PF 150 MG, BUPIVACAINE 0.75% MPF 20 ML, EPINEPHrine 30MG/30ML (OR ... INSTIL SCH; -TAMS0.4C38 PO; +TRANEXAMIC ACID 1,000 MG **IV Intra-op IV SCH; +TRANEXAMIC ACID 1,000 MG **IV Pre-op IV SCH; -WARF6TAB PO; +ceFAZolin 2000MG 2,000 MG/15 ML SYR IV SCH; +dexAMETHasone 4 MG TAB PO SCH
--- NOTE | 2020-09-10 10:47 | History & Physical Bridge Note ---
Date of Service September 10, 2020 History & Physical Bridge Note I have examined the patient, reviewed the History & Physical and in the interval since the performance of the History & Physical I have noted the following changes of clinical significance: no changes noted
[2020-09-10 11:16] LABS: Partial Thromboplastin Ratio 1.1; Partial Thromboplastin Time 28.1 Seconds (21.0-31.0); Prothrombin Time 10.4 Seconds (9.0-12.0)
[2020-09-10] MEDS ORDERED: ATROPINE SULFATE 0.1 MG/ML 10ML SYR IV PRN (12:01)
[2020-09-10] MEDS ORDERED: HYDROmorphone INJ 1 MG/ML SYRINGE IV PRN (12:01)
[2020-09-10] MEDS ORDERED: fentaNYL citrate 100 MCG/2 ML VIAL IV PRN (12:01)
[2020-09-10] MEDS ORDERED: ePHEDrine sulfate 50 MG/ML AMP IV PRN (12:01)
[2020-09-10] MEDS ORDERED: ONDANSETRON INJ 2 MG/ML 2 ML VIAL IV PRN ×2 (12:01→16:43)
[2020-09-10] MEDS ORDERED: MIDAZOLAM HCL 1 MG/ML 2ML VIAL ONE ×2 (12:19)
[2020-09-10] MEDS ORDERED: fentaNYL citrate 100 MCG/2 ML VIAL ONE (12:21)
[2020-09-10] MEDS ORDERED: LIDOCAINE HCL 2% 2 ML VIAL/AMP(20MG/ML) INFIL ONE (12:45)
[2020-09-10] MEDS ORDERED: DEXAMETHASONE SOD INJ 4 MG/ML VIAL ONE (12:45)
[2020-09-10] MEDS ORDERED: PROPOFOL IV EMULSION 10 MG/ML 20 ML VIAL IV ONE (12:45)
[2020-09-10] MEDS ORDERED: ONDANSETRON INJ 2 MG/ML 2 ML VIAL ONE (12:45)
[2020-09-10] MEDS ORDERED: ORTHO JOINT ANESTHETIC ONE (13:26)
[2020-09-10] MEDS ORDERED: ePHEDrine sulfate 50 MG/ML SYR ONE (14:54)
[2020-09-10] MEDS ORDERED: PHENYLEPHRINE 100MCG/ML 5ML SYR ONE (14:54)
--- NOTE | 2020-09-10 15:05 | Operative Report ---
PG Post Operative Report Pre & Post Diagnosis Operation Date: 09/10/20 12:45 Pre-Op Diagnosis: Right Shoulder Rotator Cuff Arthropathy with tendinopathy of the long head of the biceps tendon Post-Op Diagnosis: Right Shoulder Rotator Cuff Arthropathy with tendinopathy of the long head of the biceps tendon I identified the patient and participated in the time-out.: Yes Procedure Operation Date: 09/10/20 12:45 Actual Procedures p Right Reverse Total Shoulder Arthroplasty with open biceps tenodesis as a distinct and separate procedure (modifier 59) (Right) - Don Win, Surgeon Don Win, Net Trainer Don Davis PAC Estimated Blood Loss 250 Findings Consistent with Post-Op Diagnosis Specimens Right humeral head Complications none Disposition Disposition: Recovery Room Indications Abraham is a pleasant 65-year-old male who had a rotator cuff repair done about 10 years ago. He initially did well but his shoulder function has since significantly worsened. He noticed significant weakness in his shoulder. It was keeping him from doing daily activities. MRI showed a large retracted rotator cuff tear. After failing conservative treatment, he elected proceed with a reverse right shoulder arthroplasty. Description of Procedure A CPT code modifier 59: The long head of the biceps tendon was enlarged and inflamed consistent with tendinopathy. A tenodesis was opted. This was a separate and distinct portion of the procedure. For these reasons, a CPT code modifier 59 will be added to this case. Implants used: I used a [employer] Comprehensive reverse total shoulder arthroplasty system with a size 12 press fit micro humeral stem, a standard humeral tray and a standard humeral bearing, a 25 mm small augment baseplate with a 6.5 mm central screw and superior and inferior locking screws, and a size 40 mm eccentric glenosphere. Abraham arrived at [facility] for the above procedure. He was seen in the preoperative holding area and the operative extremity was identified and signed. He was given a preoperative antibiotic, TXA, and an interscalene nerve block. He was taken back to the operating room, laid on table in supine position, and put under general anesthesia. He was then put into the beachchair position. The shoulder was then prepped and draped in sterile fashion. A timeout was done and the patient and the operative extremity was properly identified. A deltopectoral approach was used. Dissection was taken down through the fascia and the deltoid was retracted laterally and the conjoined tendon was retracted medially. The anterior shoulder was exposed. The biceps groove was opened up and the biceps tendon was examined extensively. The biceps tendon demonstrated enlargement and inflammatory changes consistent with longstanding inflammation in the context of osteoarthritis and cuff arthropathy. The long head of the biceps tendon was then tenodesed to the upper border of the pectoralis major. This was a separate and distinct portion of the procedure. The subscapularis was then directly released off the lesser tuberosity with a peel technique. The inferior capsule was released and the humeral head was dislocated. A canal finding reamer was sent down the center of the humeral canal. Sequential reaming up to a size 12 reamer was done. Off that reamer, a proximal humeral resection guide was placed. The proximal humerus was resected at 135 of inclination and 25 of retroversion. Osteophytes were then removed and the glenoid was exposed. Time was spent doing a complete capsular and labral release. The glenoid guide was then placed in the inferior aspect of the glenoid. A 3.2 mm Steinmann pin was then placed into the glenoid vault at 10 of inclination. The glenoid baseplate was then reamed. The final size 25 mm small augment baseplate was then impacted in the place. A 6.5 mm central screw was then placed followed by superior and inferior locking screws. A 40 mm eccentric glenosphere was then impacted into place. Surrounding soft tissues were then injected with 100 cc an orthopedic pain control cocktail. The proximal humerus was then exposed. Sequential broaching of the humerus up to a size 12 broach was done. Off that broach a standard humeral tray was trialed. The shoulder was then reduced, brought through a full range of motion, and felt to be stable. The shoulder was then dislocated and the broach was removed. The final size 12 micro press-fit humeral stem was then impacted into place. A standard humeral bearing was then snapped onto a standard humeral tray. The humeral tray was then impacted onto the humeral stem. The shoulder was once again reduced, brought through a full range of motion, and felt to be stable. The subscapularis was then tenodesed back to the lesser tuberosity with transosseous FiberWire sutures and side to side sutures with the arm in 45 of external rotation. A dilute betadyne lavage was then done for 3 minutes. The joint was then irrigated with normal saline solution. Hemostasis was obtained. The interval was closed with 2-0 Vicryl suture. The skin was then closed with 2-0 Vicryl and cathy. A Silverlon dressing was placed and the arm was rested in a regular arm sling. He was then extubated and transferred to a hospital bed. He taken to the postanesthesia care unit in stable condition. He tolerated the procedure well. Don Davis PA-C, was present for the entire procedure. He was critical for patient positioning, prepping, draping, retraction exposure, wound closure and application of sterile dressing. I attest to the content of the Intraoperative Record and any orders documented therein. Any exceptions are noted below.
--- NOTE | 2020-09-10 15:38 | Anesthesiology Progress Note ---
Date of Service September 10, 2020 Anesthesia Post Procedure Vital Signs Vital Signs: Temp Pulse Pulse Resp BP Pulse Ox 09/10/20 15:19 36.0 C L 71 15 104/71 97 09/10/20 10:55 36.3 C L 61 20 142/90 H 100 Transfer of Care Handoff Completed per policy Notes Mental Status: alert / awake / arousable and participated in evaluation Patient Amnestic to Procedure: Yes Nausea / Vomiting: adequately controlled Pain: adequately controlled Airway Patency, RR, SpO2: stable & adequate BP & HR: stable & adequate Hydration State: stable & adequate Anesthetic Complications: no major complications apparent and Pt Satisfied with anesthetic care
--- NOTE | 2020-09-10 15:43 | XRay Report ---
XR shoulder RT min 2V routine HISTORY: 65 years-old Male Post shoulder surgery right shoulder total joint arthroplasty COMPARISON: None TECHNIQUE: 2 views of the right shoulder FINDINGS: Reverse right shoulder total joint arthroplasty demonstrates satisfactory alignment. No acute fractur e or opaque foreign body. Expected postsurgical soft tissue swelling and deep tissue air with overlyi ng skin cathy. Small right pleural effusion with right lung base opacities. Prior median sternotomy . IMPRESSION: Reverse right shoulder total joint arthroplasty with expected postoperative changes. ACT 112: Negative or not required by law. The above report was generated using voice recognition software. It may contain grammatical, syntax o r spelling errors. Electronically signed by: Albert Ledesma M.D. 09/10/2020 3:42 PM
[2020-09-10] MEDS ORDERED: METOCLOPRAMIDE HCL INJ 5 MG/ML 2 ML VIAL IV PRN (16:43)
[2020-09-10] MEDS ORDERED: NALOXONE HCL 0.4 MG/1 ML VIAL/CARP IV PRN (16:43)
[2020-09-10] MEDS ORDERED: oxyCODONE HCL IR 5 MG TAB (IMMEDIATE RELEASE) PO PRN (16:43)
[2020-09-10] MEDS ORDERED: HYDROmorphone INJ 0.5 MG/0.5 ML SYR IV PRN (16:43)
[2020-09-10] MEDS ORDERED: MAGNESIUM HYDROXIDE SUSP 30 ML UDC PO PRN (16:43)
[2020-09-10] MEDS ORDERED: bisacodyL 10 MG SUPP PR PRN (16:43)
[2020-09-10] MEDS: KETOROLAC 30 MG/ML VIAL IV SCH ×2 (18:15→23:50)
[2020-09-10] MEDS: SODIUM CHLORIDE 0.9% 1000ML 1,000 ML IV SCH (18:16)
[2020-09-10] MEDS: GABAPENTIN 600 MG TAB PO SCH (20:36)
[2020-09-10] MEDS: TAMSULOSIN HCL 0.4 MG CAP PO SCH (20:36)
[2020-09-10] MEDS: DOCUSATE SODIUM 100 MG CAP PO SCH (20:36)
[2020-09-10] MEDS ORDERED: SENNA 8.6 MG TAB PO SCH (21:00)
[2020-09-10] MEDS ORDERED: ZOLPIDEM TARTRATE 10 MG TAB PO SCH (21:00)
[2020-09-10] MEDS: ACETAMINOPHEN 500 MG TAB PO SCH (21:48)
[2020-09-10] MEDS: ceFAZolin 2000MG 2,000 MG/15 ML SYR IV SCH (21:48)
[2020-09-11] MEDS: SODIUM CHLORIDE 0.9% 1000ML 1,000 ML IV SCH (00:24)
[2020-09-11] MEDS: ACETAMINOPHEN 500 MG TAB PO SCH (05:29)
[2020-09-11] MEDS: ceFAZolin 2000MG 2,000 MG/15 ML SYR IV SCH (05:30)
[2020-09-11] MEDS: KETOROLAC 30 MG/ML VIAL IV SCH (05:32)
--- NOTE | 2020-09-11 06:55 | Orthopedic Progress Note ---
Date of Service September 11, 2020 Assessment & Plan (1) Status post reverse arthroplasty of right shoulder: Overall he is doing very well. He is not having much pain in the right shoulder. He will be seen by physical therapy today for ambulation and range of motion exercises. He can be discharged home later today. He will follow-up with orthopedics in 2 weeks. Crista Rosario was seen and examined at bedside this morning. Overall he is doing very well. Is not having any pain in the right shoulder. He is happy with his progress to this point and has no complaints.. Review of Systems All systems reviewed & are unremarkable except as noted in HPI & below. Physical Exam On physical examination of the right shoulder, the dressing is clean and dry. He is wearing a sling as instructed. His radial, median, and ulnar nerves were not working yet at his wrist due to the nerve block. He still has numbness in his right hand.. Results & Data Results & Data Laboratory Results . Diagnostic Findings Postoperative x-rays of the right shoulder show the prosthesis to be in anatomic alignment without any evidence of fracture, dislocation, or loosening.. PG Care Time/CCT Total # of Minutes Spent Total Time Spent with Patient: Total time spent is greater than 50% in coordination of care (as documented) at patient's floor/unit and/or counseling patient: Coding Level of Care Code 68494 Post Operative Follow-Up Diagnoses Status post reverse arthroplasty of right shoulder Z96.611
--- NOTE | 2020-09-11 06:57 | Discharge Summary ---
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 He had a work-related injury a couple of months ago where he injured his right shoulder. He has been having a difficult time doing any forward elevation. He does have a history of a rotator cuff repair by Dr. Henderson on the right shoulder about 7 to 10 years ago. He was doing well, not having any pain until the work-related incident. Now he notices weakness in his shoulder and pain and weakness reaching away from his body. He has an MRI of his shoulder which showed a massive rotator cuff tear including the supraspinatus and subscapularis. We discussed different options including superior capsular reconstruction versus reverse shoulder arthroplasty. Given the large subscapularis tear and his desire to return to work as soon as possible, we elected to proceed with a reverse shoulder arthroplasty of the right shoulder. . Admission Exam (Per Admitting) On physical examination of the right shoulder, he has about 130 degrees forward elevation on 3 degrees of abduction. He is throughout 5 motion with full can testing and positive belly press test.. Principal Diagnosis Same as "Discharge Diagnosis" noted below under Discharge Instructions. Discharge Exam On physical examination of the right shoulder, the dressing is clean and dry. He is wearing a sling as instructed. His radial, median, and ulnar nerves were not working yet at his wrist due to the nerve block. He still has numbness in his right hand.. Discharge Data Consultations 09/10/20 16:43 Consult Case Management - Discharge Planning Routine Procedures Performed Operation Date: 09/10/20 12:45 Actual Procedures p Right Reverse Total Shoulder Arthroplasty(Right) - Don Win DO Ordered Studies 09/10/20 05:00 US - OR guided needle placemen Routine Hospital Course (1) Status post reverse arthroplasty of right shoulder: On September 10, 2020 Abraham arrived at [facility] and underw ent a right reverse shoulder arthroplasty without complication. He had a general anesthetic and a right interscalene nerve block. Postoperatively he was placed in a sling and transferred to the general orthopedic floors. His hospital course was uneventful. On postop day #1 his H&H was stable and his pain was well controlled. He was able to participate well with physical therapy doing ambulation and range of motion exercises. He was then discharged home. He will follow-up with orthopedics in 2 weeks. PG Care Time/CCT Total # of Minutes Spent Total Time Spent with Patient: Total time spent is greater than 50% in coordination of care (as documented) at patient's floor/unit and/or counseling patient: Discharge Plan Discharge Items Patient Disposition: Home - Home Health Services Reason For Visit: Right Shoulder Rotator Cuff Arthropathy Discharge Diagnosis: Right reverse shoulder replacement Activity: As commented below Non-emergency contact: Surgeon Call non-emergency contact if: your wound has increased redness and your wound has increased drainage Follow-up/Referrals: Mark Kurtz M.D. [Primary Care Provider] - Diet: Regular Addtl Attending Provider Instructions: Activity and Therapy Recommendations: * If you are using [facility] then therapy will be provided at your home until they feel you have accomplished all of your goals. * If you are using [facility] then Physical Therapy will be provided until they feel you are ready to start Outpatient Physical Therapy. * If you are not using home therapy then Outpatient Physical Therapy should start about 3-5 days from your day of surgery. Therapy will last about 8-12 weeks * Wear your sling for 3 weeks, unless otherwise instructed. You may remove your sling to shower and to dress, but otherwise, you should be in your sling at all times, including while sleeping * The shoulder replacement is very stable and you can use your hand while in the sling * You were shown a series of exercises in the hospital. Do these exercises daily including the exercises you were shown in physical therapy. Medications: * Narcotic You will likely be sent home from the hospital with a prescription for the narcotic pain medication that worked best throughout your stay. * Other medications may be prescribed for specific circumstances. If you have any questions, please call the office at . * Resume previous home medications unless otherwise instructed Dressing Care: Leave the Silverlon dressing in place for 7 days. After 7 days you may remove the dressing. If the incision is not draining then you may leave the cathy open to air. If there is a little bit of drainage or if the cathy are getting stuck on your clothing then cover the incision with a dry dressing. The cathy will be removed at your 2 week follow-up appointment. Showering: You may shower with the Silverlon dressing in place. Do not let the shower sp ray hit the dressing directly. Pat the Silverlon dressing dry. If the dressing becomes wet underneath, then simply remove the dressing. Keep the incision dry until you are 7 days out from the day of surgery. After 7 days you may remove the Silverlon dressing and shower with the cathy exposed. Let soapy water run over the cathy and pat them dry. Do not scrub or soak the incision. Things To Watch For: * Drainage from the incision site that occurs more than one week after your surgery. * Increased redness at the incision site. * Fever above 102 degrees Fahrenheit. * Unusual chest pain or shortness of breath. * Call [facility] at with any of the above problems Follow-Up Visit: Follow-up with Dr. Win's PA (Don Davis) 2-3 weeks after your day of surgery. He will remove your cathy and answer any questions. If you have any additional questions or concerns, Dr Win is usually in the office at the same time and will be available An appointment was probably scheduled when you signed-up for surgery in the office. If you have any questions call More detailed instructions as well as Frequently Asked Questions were provided in a folder by our office when you signed-up for surgery. Please review these instructions when you get home. If you have any further questions or concerns, please feel free to call the office at [phone] Pending Studies at Discharge: No Stand-Alone Forms: My [facility] Medications and DC Order Prescriptions: New oxycodone-acetaminophen [Percocet] 5-325 mg tablet 1 tab PO Q6H PRN (Reason: pain) Qty: 60 RF: 0 Continued lisinopril 20 mg tablet 20 mg PO QAM RF: 0 warfarin 6 mg tablet 6 mg PO QAM RF: 0 zolpidem [Ambien] 10 mg tablet 10 mg PO HS RF: 0 Centrum 18-400 mg-mcg tablet 1 tab PO QAM RF: 0 Culturelle 10 billion cell capsule 1 cap PO QAM RF: 0 tamsulosin [Flomax] 0.4 mg Capsule 0.4 mg PO BID RF: 0 gabapentin 600 mg Tablet Extended Release 24 Hr 600 mg PO BID RF: 0 pravastatin 40 mg Tablet 40 mg PO QAM RF: 0 Discharge Orders: Discharge Order (Routine); Ordered 09/11/20 Ordered By: Don Win Admission Data Admit Date/Time: 09/10/20 15:19 Attending Provider: Don Win Admit Provider: Don Win Primary Care Provider: Mark Kurtz
[2020-09-11 07:00] LABS: Hematocrit (blood only) 40.9 % (42-52); Hemoglobin 13.2 g/dL (14.0-18.0); Immature Granulocytes # (auto) 0.02 K/uL (0.00-0.02); Immature Granulocytes % (auto) 0.2 %; Lymphocytes # (auto) 1.37 K/uL (1.2-3.4); Mean Corpuscular Hemoglobin 28.4 pg (25-34); Mean Corpuscular Hgb Conc 32.3 g/dL (32-36); Mean Corpuscular Volume 88.1 fL (80-100); Mean Platelet Volume 10.2 fL (7.4-10.4); Monocytes # (auto) 0.68 K/uL (0.11-0.59); Neutrophils # (auto) 9.33 K/uL (1.4-6.5); Neutrophils % (auto) 81.8 %; Platelet Count 163 K/uL (130-400); RDW Coefficient of Variation 14.6 % (11.5-14.5); RDW Standard Deviation 47.3 fL (36.4-46.3); Red Blood Count 4.64 M/uL (4.7-6.1)
[2020-09-11 07:05] LABS: Prothrombin Time 10.6 Seconds (9.0-12.0)
[2020-09-11 07:32] LABS: BUN Creatinine Ratio 19.3 (10-20); Calcium 8.2 mg/dl (8.5-10.1); Creatinine Clr Calc Pharmacy 65.9 ml/min; Est GFR (African American) 75.9; Est GFR (Non-African American) 65.5; Potassium 4.5 mmol/L (3.5-5.1)
[2020-09-11] MEDS ORDERED: dexAMETHasone 4 MG TAB PO SCH (08:00)
[2020-09-11] MEDS: GABAPENTIN 600 MG TAB PO SCH (08:56)
[2020-09-11] MEDS: TAMSULOSIN HCL 0.4 MG CAP PO SCH (08:56)
[2020-09-11] MEDS: DOCUSATE SODIUM 100 MG CAP PO SCH (08:58)
[2020-09-11] MEDS ORDERED: lisinopril 20 MG TAB PO SCH (09:00)
[2020-09-11] MEDS ORDERED: MULTIVITAMIN TAB PO SCH (09:00)
[2020-09-11] MEDS ORDERED: PRAVASTATIN SOD 40 MG TAB PO SCH (09:00)
[2020-09-11] MEDS ORDERED: PRAVASTATIN SOD 20 MG TAB PO SCH (09:00)
[2020-09-11] MEDS ORDERED: WARFARIN SOD 6 MG TAB PO SCH (16:00)
--- NOTE | 2020-09-19 13:49 | Coding Query ---
CODING QUERY To promote full compliance with coding requirements relating to patient care, provider participation is requested in all cases of registered nursing professor uncertainty. 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 He had a work-related injury a couple of months ago where he injured his right shoulder. He has been having a difficult time doing any forward elevation. He does have a history of a rotator cuff repair by Dr. Henderson on the right shoulder about 7 to 10 years ago. He was doing well, not having any pain until the work-related incident. Now he notices weakness in his shoulder and pain and weakness reaching away from his body. He has an MRI of his shoulder which showed a massive rotator cuff tear including the supraspinatus and subscapularis. We discussed different options including superior capsular reconstruction versus reverse shoulder arthroplasty. Given the large subscapularis tear and his desire to return to work as soon as possible, we elected to proceed with a reverse shoulder arthroplasty of the right shoulder". Please specify below, in your clinical opinion, regarding the Right Shoulder Rotator Cuff Arthropathy. (X ) This is Post-Traumatic Arthropathy of the Right Shoulder ( ) This is Not Post-Traumatic Arthropathy of the Right Shoulder ( ) Other: Please Specify Physician's Response(s): Thank you Christin Medrano Principal Diagnosis: "that condition established after study, to be chiefly responsible for occasioning the admission of the patient to the hospital for care." Co-Existing Principal Diagnosis: "when two or more diagnoses equally meet the criteria for principal diagnosis as determined by the circumstances of admission, diagnostic work up, and/or therapy provided, and the Alphabetic Index, Tabular List, or another coding guideline does not provide sequencing direction, any one of the diagnoses may be sequenced first." "When the physician has documented what appears to be a current diagnosis in the body of the record, but has not included the diagnosis in the final diagnostic statement, the physician should be asked whether the diagnosis should be added." (Source [facility]oding [facility] 2 QTR90. p3-4) DEL
== END 2020-09-11 11:50 | disposition home or self-care (01) ==
LOC: ASU 10:19 → 3N 15:19